=== PATIENT | male | born 1950 | race Asian ===

== ENCOUNTER 2023-08-06 17:31 | Emergency (ER) | payer OTHER ==
[~2023-08-06] VITALS: Ht 157.5 cm; Wt 52.2 kg
[2023-08-06 17:39] VITALS: BP 145/91; PULSE 80; RESP 17; TEMP 97.6
[2023-08-06 18:17] VITALS: TEMP 97.6
[2023-08-06 18:46] LABS: BASOPHILS % (AUTO) 0.4 % (0.0-2.0); EOSINOPHILS % (AUTO) 0.5 % (0.0-4.0); HEMOGLOBIN 14.2 g/dL (12.0-18.0); LYMPHOCYTES # (AUTO) 1.5 K/uL (2.0-11.5); LYMPHOCYTES % (AUTO) 22.2 % (20.5-51.1); MEAN CORPUSCULAR HEMOGLOBIN 31 pg (27-31); MEAN CORPUSCULAR HGB CONC 34 g/dL (33-37); MEAN CORPUSCULAR VOLUME 92.6 fL (80-94); MONOCYTES # (AUTO) 0.6 K/uL (0.8-1.0); MONOCYTES % (AUTO) 8.8 % (1.7-9.3); NEUTROPHILS # (AUTO) 4.5 K/uL (1.8-7.7); NEUTROPHILS % (AUTO) 68.1 % (42.2-75.2); PLATELET COUNT (AUTO) 206 K/uL (140-450); RED BLOOD CELL COUNT(AUTO) 4.53 MIL/uL (4.20-6.10); WHITE BLOOD COUNT (AUTO) 6.6 K/uL (4.8-10.8)
[2023-08-06 19:00] LABS: ANION GAP 12.9 (8-16); CALCIUM 8.5 mg/dL (8.5-10.1); CARBON DIOXIDE 27.6 mmol/L (21-32); CHLORIDE 100 mmol/L (98-107); CREATININE 0.6 mg/dL (0.6-1.3); GLUCOSE 102 mg/dL (74-106); INR 0.98 (0.8-1.2); PARTIAL THROMBOPLASTIN TIME 27.7 secs (22-35.6); POTASSIUM 3.5 mmol/L (3.5-5.1); PROTHROMBIN TIME 10.3 secs (10.8-13.4); SODIUM SERUM 137 mmol/L (136-145); UREA NITROGEN, BLOOD 15 mg/dL (7-18)
[2023-08-06 19:08] LABS: MAGNESIUM 2.1 mg/dL (1.8-2.4); PHOSPHORUS 3.1 mg/dL (2.5-4.9)
[2023-08-06] MEDS: NACL 0.9% 1,000 ML IV ONE (19:33)
[2023-08-06] MEDS: DIAZEPAM PFS 10 MG/2 ML SYR IVP ONE (19:37)
[2023-08-06] MEDS ORDERED: DIAZEPAM PFS 10 MG/2 ML SYR ONE (21:09)
[2023-08-06] MEDS ORDERED: MECL-303 PO (22:05)
[2023-08-06] MEDS ORDERED: DIAZ2TAB6 PO (22:05)
[2023-08-06 22:58] VITALS: BP 128/85; PULSE 82; RESP 20; O2SAT 95
== END 2023-08-06 22:58 | disposition home or self-care (01) ==
LOC: MED 17:31
DX: R42 Dizziness and giddiness (principal); R53.1 Weakness; R11.2 Nausea with vomiting, unspecified; Z79.899 Other long term (current) drug therapy
CPT/HCPCS: 36415; 70450; 70496; 70498; 71045; 80048; 83735; 84100; 84484; 85025; 85610; 85730; 93005; 96361; 96374; 99285; J3360; Q9967